=== PATIENT | female | born 2000 | race Hispanic/Latino ===

== ENCOUNTER 2020-04-14 07:20 | Emergency (ER) | payer SELFPAY ==
[2020-04-14 08:16] LABS: HCG Qualitative,Urine Negative (Negative)
[2020-04-14 08:19] LABS: Bilirubin,Urine NEG (Negative); Blood,Urine MOD (Negative); Color,Urine Yellow (Yellow); Protein,Urine <15 mg/dL mg/dL (Negative); Urobilinogen,Urine < 2.0 mg/dL (<2.0)
--- NOTE | 2020-04-14 08:24 | Emergency Department Report ---
ED General Adult HPI - General Chief complaint: Abdominal Pain Stated complaint: ABD PAIN Time Seen by Provider: 04/14/20 08:10 Source: patient Mode of arrival: Ambulatory Limitations: No Limitations - History of Present Illness Initial comments: 19-year-old otherwise healthy female presenting with chief complaint of lower abdominal discomfort, onset yesterday. She reports that recently she has noticed some pain in her cervix as well. Reports a clear to white discharge, states that she is sexually active and that is when she notices the pain. Rep orts nausea this morning. Pain was gradual onset, moderate in severity with no exacerbating or alleviating factors. Denies any fever or any other associated symptoms. - Related Data Previous Rx's Medication Instructions Recorded Last Taken Type Sulfamethoxazole/Trimethoprim 1 each PO BID #14 tablet 04/14/20 Unknown Rx [Bactrim DS TAB] traMADoL [Ultram 50 MG tab] 50 mg PO Q4HR PRN #12 tablet 04/14/20 Unknown Rx Allergies Allergy/AdvReac Type Severity Reaction Status Date / Time fluconazole [From Diflucan] Allergy Unknown Verified 04/14/20 07:37 Penicillins Allergy Unknown Verified 04/14/20 07:37 ED Review of Systems ROS: Stated complaint: ABD PAIN Other details as noted in HPI Gastrointestinal: as per HPI Genitourinary: as per HPI ED Past Medical Hx - Past Medical History Additional medical history: IBS, lupus, hypothyroidism - Surgical History Past Surgical History?: Yes Additional Surgical History: Tonsilectomy - Social History Smoking Status: Never Smoker - Medications Home Medications: Home Medications Medication Instructions Recorded Confirmed Last Taken Type Sulfamethoxazole/Trimethoprim 1 each PO BID #14 tablet 04/14/20 Unknown Rx [Bactrim DS TAB] traMADoL [Ultram 50 MG tab] 50 mg PO Q4HR PRN #12 tablet 04/14/20 Unknown Rx ED Physical Exam - General Limitations: No Limitations General appearance: alert, in no apparent distress - Head Head exam: Present: atraumatic, normocephalic - Eye Eye exam: Present: normal appearance - ENT ENT exam: Present: mucous membranes moist - Neck Neck exam: Present: normal inspection - Respiratory Respiratory exam: Present: normal lung sounds bilaterally. Absent: respiratory distress, wheezes - Cardiovascular Cardiovascular Exam: Present: regular rate, normal rhythm. Absent: systolic m urmur, diastolic murmur, rubs, gallop - GI/Abdominal GI/Abdominal exam: Present: soft, tenderness (Suprapubic), normal bowel sounds. Absent: distended, guarding, rebound - External exam: Present: normal external exam Speculum exam: Present: cervical discharge (scant) Bi-manual exam: Present: cervical motion tendernes, other (administrative analyst Nkechi ) - Extremities Exam Extremities exam: Present: normal inspection - Back Exam Back exam: Present: normal inspection - Neurological Exam Neurological exam: Present: alert, oriented X3 - Psychiatric Psychiatric exam: Present: normal affect, normal mood - Skin Skin exam: Present: warm, dry, intact, normal color. Absent: rash ED Course Vital Signs 04/14/20 04/14/20 07:40 09:12 Temperature 98.0 F Pulse Rate 90 Respiratory 20 18 Rate Blood Pressure 120/78 O2 Sat by Pulse 96 Oximetry ED Medical Decision Making - Lab Data Result diagrams: 04/14/20 08:16 04/14/20 08:16 - Radiology Data Radiology results: report reviewed Abnormal appearance of the urinary bladder suggestive of infectious etiology, otherwise negative ultrasound - Medical Decision Making Patient presenting with complaints of abdominal discomfort since earlier today, nausea, clear to white vaginal discharge. She does report dyspareunia. On my exam she has some mild suprapubic tenderness otherwise abdomen is benign. No focal right upper or right lower quadrant tenderness. Low suspicion for acute surgical process. We will check labs, urinalysis, perform pelvic exam. Will give Percocet and Zofran. Ultrasound shows findings of abnormal urinary bladder likely infectious etiology otherwise unremarkable. CBC and chemistry are stable. Urinalysis with white blood cells. We will treat with Rocephin, azithromycin to cover for STI and then discharged on oral antibiotics. Follow-up outpatient PCP/SPREAD CUTTER - Differential Diagnosis PID, cyst, UTI Critical care attestation.: If time is entered above; I have spent that time in minutes in the direct care of this critically ill patient, excluding procedure time. ED Disposition Clinical Impression: Cystitis, Pelvic pain Disposition: TO HOME OR SELFCARE Is pt being admited?: No Condition: Good Instructions: Abdominal Pain (ED), Pelvic Pain, Female, Urinary Tract Infection, Adult Prescriptions: Sulfamethoxazole/Trimethoprim [Bactrim DS TAB] 1 each PO BID #14 tablet traMADoL [Ultram 50 MG tab] 50 mg PO Q4HR PRN #12 tablet PRN Reason: Pain Referrals: PRIMARY CARE, [Primary Care Provider] - 3-5 Days JIL DWYER MD [Staff Physician] - 3-5 Days BEL BRITO MD [Staff Physician] - 3-5 Days Time of Disposition: 09:59
[2020-04-14] MEDS ORDERED: oxyCODONE /ACETAMINOPHEN 5-325MG TAB PO ONE (08:30)
[2020-04-14] MEDS ORDERED: ONDANSETRON 4 MG ODT TAB PO ONE (08:30)
[2020-04-14 08:39] LABS: Basophils # (Auto) 0.1 K/mm3 (0.0-0.1); Basophils % (Auto) 0.5 % (0.0-1.8); Eosinophils # (Auto) 0.2 K/mm3 (0.0-0.4); Eosinophils % (Auto) 1.8 % (0.0-4.3); Hematocrit 40.2 % (30.3-42.9); Hemoglobin 13.6 gm/dl (10.1-14.3); Lymphocytes # (Auto) 2.4 K/mm3 (1.2-5.4); Lymphocytes % (Auto) 23.2 % (13.4-35.0); Mean Corpuscular HGB Conc 34 % (30-34); Mean Corpuscular Volume 81 fl (79-97); Monocytes # (Auto) 0.8 K/mm3 (0.0-0.8); Monocytes % (Auto) 7.2 % (0.0-7.3); Platelet Count 357 K/mm3 (140-440); Red Blood Count 4.95 M/mm3 (3.65-5.03); Red Cell Distribution Width 14.1 % (13.2-15.2)
[2020-04-14 08:56] LABS: Blood Urea Nitrogen 12 mg/dL (7-17); Calcium 9.5 mg/dL (8.4-10.2); Hemolysis Index 5
[2020-04-14 08:59] LABS: BUN/Creatinine Ratio 20
--- NOTE | 2020-04-14 09:14 | Ultrasound Report ---
Pelvic Ultrasound HISTORY: Acute generalized pelvic pain. TECHNIQUE: Grayscale and color imaging performed. COMPARISON: None FINDINGS: Transabdominal and endovaginal technique was performed. Uterus measures 7.4 x 3.2 x 3.5 cm with endometrial echocomplex measuring 8 mm. Ovaries are normal in size with small physiologic follicles noted. There is preserved ovarian blood flow. The bladder is mildly distended with internal echogenic debris. IMPRESSION: 1. Abnormal appearance of the urinary bladder could be seen with an infectious/inflammatory process. Correlate with UA. 2. Otherwise unremarkable pelvic ultrasound. Signer Name: Ye Wiseman MD Signed: 04/14/2020 9:09 AM Workstation Name: [id number]
[2020-04-14] MEDS ORDERED: LIDOCAINE-MPF (1%) 10 MG/1 ML VIAL 5 ML INFILTRATI ONE (09:20)
[2020-04-14] MEDS ORDERED: AZITHROMYCIN 250 MG TAB PO ONE (09:21)
[2020-04-14 10:45] VITALS: BP 94/48
== END 2020-04-14 10:43 | disposition home or self-care (01) ==
LOC: ED 07:20
DX: N30.90 Cystitis, unspecified without hematuria (principal); R10.2 Pelvic and perineal pain; E03.9 Hypothyroidism, unspecified; Z79.899 Other long term (current) drug therapy; Z88.0 Allergy status to penicillin; Z88.8 Allergy status to other drugs, medicaments and biological substances
CPT/HCPCS: 36415; 76830; 76856; 80048; 81001; 81025; 85025; 87086; 87210; 87591; 96372; 99284; J0696; Q0162

== ENCOUNTER 2020-04-29 21:19 | Emergency (ER) | payer SELFPAY ==
[2020-04-29] MEDS ORDERED: dexAMETHasone 20 MG/5 ML VIAL IV ONE (21:25)
[2020-04-29] MEDS ORDERED: diphenhydrAMINE 50 MG/ML VIAL IV ONE (21:25)
--- NOTE | 2020-04-29 21:27 | Event Note ---
ED Screening Note Date of service: 04/29/20 Time: 21:26 ED Screening Note: Complains of diffuse itchy rash, now with chest tightness Diffuse urticaria noted on exam No dysphagia Patient states she tried oral Benadryl x3 without improvement History of lupus Patient unsure of what the allergic reaction is due to This initial assessment/diagnostic orders/clinical plan/treatment(s) is/are subject to change based on patients health status, clinical progression and re- assessment by fellow clinical providers in the ED. Further treatment and workup at subsequent clinical providers discretion. Patient/guardian urged not to elope from the ED as their condition may be serious if not clinically assessed and managed. Initial orders include: Decadron Benadryl
[2020-04-29] MEDS ORDERED: diphenhydrAMINE 50 MG/ML VIAL IM ONE (21:29)
[2020-04-29] MEDS ORDERED: dexAMETHasone 20 MG/5 ML VIAL IM ONE (21:30)
[2020-04-29] MEDS ORDERED: FAMOTIDINE 20 MG TAB PO ONE (22:37)
--- NOTE | 2020-04-29 22:45 | Emergency Department Report ---
ED Allergic Reaction HPI - General Chief complaint: Allergic Reaction Stated complaint: ALLERGIC REACTION Time Seen by Provider: 04/29/20 21:24 Source: patient Mode of arrival: Ambulatory Limitations: No Limitations - History of Present Illness Initial Comments: Patient is a 20-year-old white female with a history of SLE, hypothyroidism, IBS and peptic ulcer disease who presents to the ED with complaint of acute onset persistent diffuse itchy erythematous maculopapular rash for the last 8 hours. Patient states that she initially took Benadryl, which helped but that once the medicine wore off the itching and the hives returned, this time more severe. Patient denies swollen lips or tongue, shortness of breath, chest pain, nausea, vomiting, diarrhea, abdominal pain, fever, chills, swollen face, dizziness, wheezing or syncope. MD Complaint: allergic reaction, hives, other (diffuse itchy erythematous rashes) -: Sudden, hour(s) (8) Exposure: unknown Symptoms: rash, itching. denies: facial swelling, lip swelling, difficulty swallowing, difficulty breathing, orolingual swelling, hoarseness, syncopy, dizziness, nausea, vomiting, abdominal pain Severity: severe Treatment Prior to Arrival: benadryl Previous Allergy History: none - Related Data Previous Rx's Medication Instructions Recorded Last Taken Type Sulfamethoxazole/Trimethoprim 1 each PO BID #14 tablet 04/14/20 Unknown Rx [Bactrim DS TAB] traMADoL [Ultram 50 MG tab] 50 mg PO Q4HR PRN #12 tablet 04/14/20 Unknown Rx Famotidine [Pepcid] 20 mg PO Q12H #30 tablet 04/29/20 Unknown Rx Prednisone [predniSONE 10 mg 10 mg PO .TAPER #21 tab.ds.pk 04/29/20 Unknown Rx (6-Day Pack, 21 Tabs)] diphenhydrAMINE [Benadryl CAP] 25 mg PO Q6HR PRN #30 capsule 04/29/20 Unknown Rx EPINEPHrine [Epipen] 0.3 mg SC ONCE PRN #1 pen 04/30/20 Unknown Rx Allergies Allergy/AdvReac Type Severity Reaction Status Date / Time fluconazole [From Diflucan] Allergy Unknown Verified 04/14/20 07:37 Penicillins Allergy Unknown Verified 04/14/20 07:37 ED Review of Systems ROS: Stated complaint: ALLERGIC REACTION Other details as noted in HPI Constitutional: denies: chills, fever Eyes: denies: eye pain, eye discharge, vision change ENT: denies: ear pain, throat pain Respiratory: denies: cough, shortness of breath, wheezing Cardiovascular: denies: chest pain, palpitations Endocrine: no symptoms reported Gastrointestinal: denies: abdominal pain, nausea, diarrhea Genitourinary: denies: urgency, dysuria, discharge Musculoskeletal: denies: back pain, joint swelling, arthralgia Skin: rash, change in color, pruritus, other (Diffuse erythematous maculopapular itchy urticarial rashes). denies: lesions Neurological: denies: headache, weakness, paresthesias Psychiatric: denies: anxiety, depression Hematological/Lymphatic: denies: easy bleeding, easy bruising ED Past Medical Hx - Past Medical History Previous Medical History?: Yes Additional medical history: IBS, lupus, hypothyroidism, PUD - Surgical History Past Surgical History?: Yes Additional Surgical History: Tonsilectomy, Adenoids - Social History Smoking Status: Former Smoker Substance Use Type: None - Medications Home Medications: Home Medications Medication Instructions Recorded Confirmed Last Taken Type Sulfamethoxazole/Trimethoprim 1 each PO BID #14 tablet 04/14/20 Unknown Rx [Bactrim DS TAB] traMADoL [Ultram 50 MG tab] 50 mg PO Q4HR PRN #12 tablet 04/14/20 Unknown Rx Famotidine [Pepcid] 20 mg PO Q12H #30 tablet 04/29/20 Unknown Rx Prednisone [predniSONE 10 mg 10 mg PO .TAPER #21 tab.ds.pk 04/29/20 Unknown Rx (6-Day Pack, 21 Tabs)] diphenhydrAMINE [Benadryl CAP] 25 mg PO Q6HR PRN #30 capsule 04/29/20 Unknown Rx EPINEPHrine [Epipen] 0.3 mg SC ONCE PRN #1 pen 04/30/20 Unknown Rx ED Physical Exam - General Limitations: No Limitations General appearance: alert, in no apparent distress - Head Head exam: Present: atraumatic, normocephalic, normal inspection - Eye Eye exam: Present: normal appearance, PERRL, EOMI Pupils: Present: normal accommodation - ENT ENT exam: Present: normal exam, normal orophraynx, mucous membranes moist, TM's normal bilaterally, normal external ear exam - Neck Neck exam: Present: normal inspection, full ROM. Absent: tenderness - Respiratory Respiratory exam: Present: normal lung sounds bilaterally. Absent: respiratory distress, wheezes, rales, rhonchi, chest wall tenderness, accessory muscle use, decreased breath sounds, prolonged expiratory - Cardiovascular Cardiovascular Exam: Present: normal rhythm, tachycardia, normal heart sounds. Absent: systolic murmur, diastolic murmur, rubs, gallop - GI/Abdominal GI/Abdominal exam: Present: soft, normal bowel sounds. Absent: tenderness, guarding, rebound, hyperactive bowel sounds, hypoactive bowel sounds - Extremities Exam Extremities exam: Present: normal inspection, full ROM, normal capillary refill - Back Exam Back exam: Present: normal inspection, full ROM. Absent: tenderness, CVA tenderness (R), CVA tenderness (L), muscle spasm, paraspinal tenderness - Neurological Exam Neurological exam: Present: alert, oriented X3, CN II-XII intact, normal gait, reflexes normal - Psychiatric Psychiatric exam: Present: normal affect, normal mood - Skin Skin exam: Present: warm, dry, intact, rash (Diffuse erythematous maculopapular urticarial rashes), erythema, urticaria ED Course Vital Signs 04/29/20 04/30/20 21:23 00:03 Temperature 98.0 F 98.3 F Pulse Rate 116 H 98 H Respiratory 18 14 Rate Blood Pressure 137/70 Blood Pressure 122/77 [Left] O2 Sat by Pulse 97 100 Oximetry ED Medical Decision Making - Medical Decision Making This is a 20-year-old white female with a history of SLE, hypothyroidism, IBS and peptic ulcer disease who presents to the ED with complaint of acute onset persistent diffuse itchy erythematous maculopapular rash for the last 8 hours. Patient states that she initially took Benadryl, which helped but that once the medicine wore off the itching and the hives returned, this time more severe. In the ED, patient is alert and oriented x3 and is not in distress. Patient was treated for acute allergic reaction with steroid, Benadryl and Pepcid in the ED. On reevaluation, patient felt better, hives improved significantly and almost resolved while in the ED. while in the ED, patient started developing mild tongue discomfort and fullness. Patient received epinephrine 0.5 mg intramuscular injection in the ED. On reevaluation, patient felt better after being observed in the ED for a while for any worsening symptoms. Patient was discharged home on medications. Patient is hemodynamically stable and was discharged home on medications including prescription steroids, Pepcid and Benadryl. Patient was advised to follow-up with her primary care physician in 3 to 5 days for reevaluation. Patient was also advised return to the ED immediately if symptoms get worse. - Differential Diagnosis Allergic reaction; urticaria; angioedema; anaphylaxis; dermatitis Critical care attestation.: If time is entered above; I have spent that time in minutes in the direct care of this critically ill patient, excluding procedure time. ED Disposition Clinical Impression: Itching with irritation, Acute urticaria Acute allergic reaction Qualifiers: Encounter type: initial encounter Qualified Code(s): T78.40XA - Allergy, unspecified, initial encounter Disposition: TO HOME OR SELFCARE Is pt being admited?: No Does the pt Need Aspirin: No Condition: Stable Instructions: Allergies, Adult, [id number], Hives, [id number], Rash, Adult, [id number] Additional Instructions: Take medications with food, drink plenty of fluids and follow-up with your primary care physician in 5 to 7 days for reevaluation. Return to the ED immediately if symptoms get worse. Prescriptions: diphenhydrAMINE [Benadryl CAP] 25 mg PO Q6HR PRN #30 capsule PRN Reason: Itching EPINEPHrine [Epipen] 0.3 mg SC ONCE PRN #1 pen PRN Reason: Allergic Reaction Famotidine [Pepcid] 20 mg PO Q12H #30 tablet Prednisone [predniSONE 10 mg (6-Day Pack, 21 Tabs)] 10 mg PO .TAPER #21 tab.ds.pk Referrals: [facility] [Provider Group] - 3-5 Days Time of Disposition: 00:38 Print Language: GREENLANDIC
[2020-04-29] MEDS ORDERED: EPINEPHrine/PF 1 MG/1 ML INJ IM ONE (22:54)
[2020-04-29] MEDS ORDERED: methylPREDNISolone Sod Succinate 125 MG/2 ML INJ IV ONE (22:59)
[2020-04-30 00:05] VITALS: BP 122/77
== END 2020-04-30 01:00 | disposition home or self-care (01) ==
LOC: ED 21:19
DX: T78.40XA Allergy, unspecified, initial encounter (principal); L50.8 Other urticaria; L29.9 Pruritus, unspecified; E03.9 Hypothyroidism, unspecified; Z79.899 Other long term (current) drug therapy; Z98.890 Other specified postprocedural states; Z87.891 Personal history of nicotine dependence; Z88.0 Allergy status to penicillin; Z88.8 Allergy status to other drugs, medicaments and biological substances; X58.XXXA Exposure to other specified factors, initial encounter
CPT/HCPCS: 96372; 96374; 99283; J0171; J1100; J1200; J2930